=== PATIENT | male | born 1980 | race Caucasian/White ===

== ENCOUNTER 2020-03-18 09:04 | Emergency (ER) | payer BC ==
[~2020-03-18] VITALS: Ht 180.3 cm; Wt 72.7 kg
[~2020-03-18 09:04] MED LIST: CEPHALEXIN500 M1 PO; CHANTIX0.5 M1 PO; GENTAMICIN EYE D5 ML OS; LORTAB 5/500 501 TAB PO; NO HOME MEDICATIONS; NORCO 325 MG-51 TAB PO
[2020-03-18 09:09] VITALS: TEMP 98.3
[2020-03-18] MEDS ORDERED: IBU400 MG PO (09:16)
[2020-03-18 10:10] VITALS: BP 120/66; PULSE 89
== END 2020-03-18 10:10 | disposition home or self-care (01) ==
LOC: COL.ER 09:04
DX: S93.402A Sprain of unspecified ligament of left ankle, initial encounter (principal); F17.210 Nicotine dependence, cigarettes, uncomplicated; W18.42XA Slipping, tripping and stumbling without falling due to stepping into hole or opening, initial encounter; X50.1XXA Overexertion from prolonged static or awkward postures, initial encounter; Y92.410 Unspecified street and highway as the place of occurrence of the external cause; Y93.02 Activity, running